=== PATIENT | female | born 1985 | race Caucasian/White ===

== ENCOUNTER 2021-08-25 16:50 | Inpatient (IN) | payer BC, OTHER ==
[2021-08-25 17:40] LABS: #Eosinphils 0.3 10x3/uL (0.0-0.5); #Neutrophils 8.1 10x3/uL (1.5-8.4); %Basophils 0.3 % (0.0-2.0); %Eosinophils 2.5 % (0.0-6.0); %Lymphocytes 14.5 % (18.0-47.0); %Monocytes 8.9 % (0.0-10.0); %Neutrophils 73.3 % (40.0-75.0); Hemoglobin 11.9 g/dL (12.0-15.5); Mean Corpuscular HGB CONC 32.5 g/dL (32.0-36.0); Mean Corpuscular Hemoglobin 29.8 pg (27.0-33.0); Mean Corpuscular Volume 91.7 fl (81.6-98.3); Mean Platelet Volume 9.9 fl (7.4-10.4); Platelet Count 251 10x3/uL (150-450); RBC Distribution Width 13.4 % (11.5-14.5); Red Blood Cell (RBC) Count 3.99 10x6/uL (3.90-5.03); White Blood Cell (WBC) Count 11.1 10x3/uL (3.5-10.5)
[2021-08-25 17:51] LABS: ALT (SGPT) 17 U/L (8-55); AST (SGOT) 28 U/L (5-34); Albumin 4.1 g/dL (3.5-5.0); Alkaline Phosphatase 72 U/L (40-110); Anion Gap 14 mmol/L (10-20); BUN (Urea Nitrogen) 9 mg/dL (7.0-18.7); Bilirubin, Total 0.4 mg/dL (0.2-1.2); Calc. Creatinine Clearance 0 mL/min (70-130); Calcium 8.9 mg/dL (7.8-10.44); Carbon Dioxide 24 mmol/L (22-29); Chloride 102 mmol/L (98-107); Glucose 94 mg/dL (70-105); Potassium 4.1 mmol/L (3.5-5.1); Protein, Total 7.1 g/dL (6.0-8.3); Sodium 136 mmol/L (136-145)
[2021-08-25 17:54] LABS: Bilirubin Neg (Negative); Blood, Urine 50 (Negative); Clarity Clear (Clear); Glucose, Urine (Dipstick) Normal (Negative); Ketone, Urine Negative (Negative); Leukocyte Negative (Negative); Nitrite Negative (Negative); Protein, Urine (Dipstick) Negative (Neg-Trace); Specific Gravity, Urine 1.015 (1.002-1.036); Urobilinogen Normal mg/dL (Less than 2)
[2021-08-25] MEDS ORDERED: Morphine 4 MG/ML VIAL ONE ×2 (18:02→20:51)
[2021-08-25 18:05] LABS: Pregnancy Test - Urine (BHCG) Negative (Negative); Pregu Control Background? CLEAR/WHITE (CLR/WHITE); Pregu Control Bar Appear? YES (CONTROL BAR); Specific Gravity 1.015 (1.002-1.036)
[2021-08-25 18:26] LABS: RBC/HPF 0-3 HPF (0-3)
[2021-08-25 18:27] LABS: Bacteria/HPF Rare-Few HPF (None Seen); Squamous Epithelial 0-3 HPF (0-3); WBC/HPF 0-3 HPF (0-3)
[2021-08-25 18:28] LABS: Mucous/LPF Rare LPF (<2+)
[2021-08-25] MEDS ORDERED: Ondansetron PF 4 MG/2 ML Vial ONE (20:51)
[2021-08-25] MEDS ORDERED: metroNIDAZOLE 500 MG/100 ML BAG ONE (22:52)
[2021-08-25] MEDS: Sodium Chloride 0.45% 1,000 ML IV SCH (23:00)
[2021-08-25] MEDS ORDERED: Acetaminophen 325 MG TAB PO PRN (23:09)
[2021-08-25] MEDS ORDERED: Acetaminophen 325 MG TAB ONE (23:12)
[2021-08-25] MEDS ORDERED: Cyclobenzaprine 10 MG TAB PO PRN (23:20)
[2021-08-25 23:37] LABS: Magnesium 2.1 mg/dL (1.6-2.6)
[2021-08-26] MEDS ORDERED: Cefepime 2 GM VIAL ONE (00:51)
[2021-08-26] MEDS: Cefepime 2 GM in Sodium Chloride 0.9% 100 ML IVPB SCH ×2 (00:55→13:14)
[2021-08-26 01:05] LABS: SARS-CoV-2 NAA Rapid Test Not Detected (NotDetected)
[2021-08-26] MEDS ORDERED: Ondansetron PF 4 MG/2 ML Vial ONE (02:26)
[2021-08-26] MEDS ORDERED: HYDROcodone/Acetaminophen 5/325 mg Tablet ONE (02:26)
[2021-08-26] MEDS: HYDROcodone/Acetaminophen 5/325 mg Tablet PO PRN ×3 (02:27→21:58)
[2021-08-26] MEDS: Ondansetron PF 4 MG/2 ML Vial IVP PRN ×4 (02:28→20:36)
[2021-08-26 03:36] LABS: #Eosinphils 0.2 10x3/uL (0.0-0.5); #Monocytes 1.1 10x3/uL (0.0-1.1); #Neutrophils 7.3 10x3/uL (1.5-8.4); %Basophils 0.3 % (0.0-2.0); %Eosinophils 1.5 % (0.0-6.0); %Lymphocytes 18.3 % (18.0-47.0); %Monocytes 10.2 % (0.0-10.0); %Neutrophils 69.2 % (40.0-75.0); Hemoglobin 10.8 g/dL (12.0-15.5); Mean Corpuscular HGB CONC 32.4 g/dL (32.0-36.0); Mean Corpuscular Volume 92.5 fl (81.6-98.3); Mean Platelet Volume 9.7 fl (7.4-10.4); Platelet Count 192 10x3/uL (150-450); RBC Distribution Width 13.3 % (11.5-14.5); White Blood Cell (WBC) Count 10.6 10x3/uL (3.5-10.5)
[2021-08-26 03:46] LABS: Anion Gap 11 mmol/L (10-20); BUN (Urea Nitrogen) 6 mg/dL (7.0-18.7); Calc. Creatinine Clearance 0 mL/min (70-130); Calcium 8.2 mg/dL (7.8-10.44); Carbon Dioxide 25 mmol/L (22-29); Chloride 105 mmol/L (98-107); Glucose 98 mg/dL (70-105); Potassium 3.6 mmol/L (3.5-5.1); Sodium 137 mmol/L (136-145)
[2021-08-26] MEDS ORDERED: Potassium Chloride 20 MEQ TAB PO SCH (06:00)
[2021-08-26] MEDS ORDERED: Potassium Chloride 20 MEQ TAB ONE (06:13)
[2021-08-26] MEDS ORDERED: metroNIDAZOLE 500 MG/100 ML BAG ONE (06:13)
[2021-08-26] MEDS: Levothyroxine Sodium 50 MCG TAB PO SCH (06:17)
[2021-08-26] MEDS: metroNIDAZOLE 500 MG in Premix Bag 1 BAG IVPB SCH ×3 (06:17→21:57)
[2021-08-26] MEDS: Morphine 4 MG/ML VIAL SLOW IVP PRN (08:16)
[2021-08-26 08:37] VITALS: BMI 32.0
[2021-08-26] MEDS: Magnesium Oxide 250 MG TAB PO SCH (11:10)
[2021-08-26] MEDS: Docusate 100 MG CAP PO SCH ×2 (11:11→20:36)
[2021-08-26] MEDS: Polyethylene Glycol 3350 17 GM Packet PO SCH (11:11)
[2021-08-26] MEDS: Venlafaxine HCl XR 75 MG CAP PO SCH (11:11)
[2021-08-26] MEDS: Enoxaparin Sodium 40 MG/0.4 ML SYRINGE SC SCH (11:11)
[2021-08-26] MEDS: Bupropion 150 MG XL TAB PO SCH (11:11)
[2021-08-26] MEDS: Sodium Chloride 0.45% 1,000 ML IV SCH (11:30)
[2021-08-26] MEDS: metFORMIN 850 MG TAB PO SCH (11:30)
[2021-08-26 14:11] LABS: Hemoglobin A1c 4.7 % (4.0-6.0)
[2021-08-27] MEDS: Cefepime 2 GM in Sodium Chloride 0.9% 100 ML IVPB SCH ×3 (00:04→23:23)
[2021-08-27] MEDS: metroNIDAZOLE 500 MG in Premix Bag 1 BAG IVPB SCH ×3 (06:29→21:06)
[2021-08-27] MEDS: Sodium Chloride 0.45% 1,000 ML IV SCH ×2 (06:31→16:54)
[2021-08-27] MEDS: Levothyroxine Sodium 50 MCG TAB PO SCH (06:36)
[2021-08-27 08:57] LABS: #Eosinphils 0.2 10x3/uL (0.0-0.5); #Monocytes 0.5 10x3/uL (0.0-1.1); #Neutrophils 3.6 10x3/uL (1.5-8.4); %Basophils 0.4 % (0.0-2.0); %Eosinophils 2.7 % (0.0-6.0); %Monocytes 8.8 % (0.0-10.0); %Neutrophils 62.7 % (40.0-75.0); Hemoglobin 9.9 g/dL (12.0-15.5); Mean Corpuscular HGB CONC 31.8 g/dL (32.0-36.0); Mean Corpuscular Hemoglobin 29.8 pg (27.0-33.0); Mean Corpuscular Volume 93.7 fl (81.6-98.3); Mean Platelet Volume 9.8 fl (7.4-10.4); Platelet Count 174 10x3/uL (150-450); Red Blood Cell (RBC) Count 3.32 10x6/uL (3.90-5.03); White Blood Cell (WBC) Count 5.7 10x3/uL (3.5-10.5)
[2021-08-27 09:05] LABS: Anion Gap 13 mmol/L (10-20); BUN (Urea Nitrogen) 6 mg/dL (7.0-18.7); Calc. Creatinine Clearance 148 mL/min (70-130); Calcium 8.3 mg/dL (7.8-10.44); Carbon Dioxide 25 mmol/L (22-29); Chloride 106 mmol/L (98-107); Glucose 85 mg/dL (70-105); Potassium 4.2 mmol/L (3.5-5.1); Sodium 140 mmol/L (136-145)
[2021-08-27] MEDS: Ondansetron PF 4 MG/2 ML Vial IVP PRN ×2 (09:28→23:24)
[2021-08-27] MEDS: Polyethylene Glycol 3350 17 GM Packet PO SCH (09:31)
[2021-08-27] MEDS: Venlafaxine HCl XR 75 MG CAP PO SCH (09:31)
[2021-08-27] MEDS: Magnesium Oxide 250 MG TAB PO SCH (09:31)
[2021-08-27] MEDS: Docusate 100 MG CAP PO SCH ×2 (09:31→21:36)
[2021-08-27] MEDS: Enoxaparin Sodium 40 MG/0.4 ML SYRINGE SC SCH (09:31)
[2021-08-27] MEDS: Bupropion 150 MG XL TAB PO SCH (09:31)
[2021-08-27] MEDS ORDERED: SUMAtriptan Succinate 25 MG TAB PO SCH (10:00)
[2021-08-27] MEDS: metFORMIN 850 MG TAB PO SCH (10:54)
[2021-08-27] MEDS: HYDROcodone/Acetaminophen 5/325 mg Tablet PO PRN ×2 (14:32→21:07)
[2021-08-27] MEDS: Morphine 4 MG/ML VIAL SLOW IVP PRN ×2 (17:29→23:23)
[2021-08-28] MEDS: Morphine 4 MG/ML VIAL SLOW IVP PRN ×3 (04:21→22:05)
[2021-08-28] MEDS: Sodium Chloride 0.45% 1,000 ML IV SCH ×2 (04:21→20:06)
[2021-08-28] MEDS: Levothyroxine Sodium 50 MCG TAB PO SCH (04:23)
[2021-08-28] MEDS: metroNIDAZOLE 500 MG in Premix Bag 1 BAG IVPB SCH ×3 (05:05→22:04)
[2021-08-28] MEDS: metFORMIN 850 MG TAB PO SCH (08:52)
[2021-08-28] MEDS: Venlafaxine HCl XR 75 MG CAP PO SCH (08:52)
[2021-08-28] MEDS: Bupropion 150 MG XL TAB PO SCH (08:52)
[2021-08-28] MEDS: Docusate 100 MG CAP PO SCH (08:52)
[2021-08-28] MEDS: Enoxaparin Sodium 40 MG/0.4 ML SYRINGE SC SCH (08:52)
[2021-08-28] MEDS: Polyethylene Glycol 3350 17 GM Packet PO SCH (08:52)
[2021-08-28] MEDS: Ondansetron PF 4 MG/2 ML Vial IVP PRN ×2 (08:52→18:32)
[2021-08-28] MEDS: Magnesium Oxide 250 MG TAB PO SCH (08:52)
[2021-08-28] MEDS: HYDROcodone/Acetaminophen 5/325 mg Tablet PO PRN ×2 (08:54→18:33)
[2021-08-28] MEDS ORDERED: Melatonin 3 MG TAB PO PRN (11:41)
[2021-08-28] MEDS: Cefepime 2 GM in Sodium Chloride 0.9% 100 ML IVPB SCH ×2 (13:36→23:36)
[2021-08-29] MEDS: Levothyroxine Sodium 50 MCG TAB PO SCH (05:11)
[2021-08-29] MEDS: metroNIDAZOLE 500 MG in Premix Bag 1 BAG IVPB SCH (05:11)
[2021-08-29] MEDS: Bupropion 150 MG XL TAB PO SCH (09:12)
[2021-08-29] MEDS: metFORMIN 850 MG TAB PO SCH (09:12)
[2021-08-29] MEDS: Venlafaxine HCl XR 75 MG CAP PO SCH (09:13)
[2021-08-29] MEDS: Enoxaparin Sodium 40 MG/0.4 ML SYRINGE SC SCH (09:13)
[2021-08-29] MEDS: Ondansetron PF 4 MG/2 ML Vial IVP PRN (09:18)
[2021-08-29] MEDS: HYDROcodone/Acetaminophen 5/325 mg Tablet PO PRN (09:18)
[2021-08-29] MEDS: Sodium Chloride 0.45% 1,000 ML IV SCH (09:36)
[2021-08-29 12:37] VITALS: BP 117/72; TEMP 97
[2021-08-29] MEDS: Cefepime 2 GM in Sodium Chloride 0.9% 100 ML IVPB SCH (13:05)
== END 2021-08-29 13:26 | disposition home or self-care (01) | DRG 392 ==
LOC: CSHERS 16:50 → CSHERHOLD 22:42 → OBSVTOIN 22:42 → CSHTELE 08-26 07:16
PROVIDERS: ADMIT Family Medicine; ATTEND Hospitalist
DX: K57.32 Diverticulitis of large intestine without perforation or abscess without bleeding (principal); E28.2 Polycystic ovarian syndrome; E11.9 Type 2 diabetes mellitus without complications; J45.909 Unspecified asthma, uncomplicated; G43.909 Migraine, unspecified, not intractable, without status migrainosus; G47.00 Insomnia, unspecified; E03.9 Hypothyroidism, unspecified; E06.3 Autoimmune thyroiditis; Z20.822 Contact with and (suspected) exposure to COVID-19; Z90.49 Acquired absence of other specified parts of digestive tract; Z72.89 Other problems related to lifestyle; Z79.899 Other long term (current) drug therapy; Z79.890 Hormone replacement therapy; Z98.890 Other specified postprocedural states; Z79.84 Long term (current) use of oral hypoglycemic drugs; Z79.2 Long term (current) use of antibiotics
CPT/HCPCS: 36415; 74177; 76856; 80048; 80053; 81003; 81015; 81025; 83036; 83605; 83735; 85025; 87040; 90471; 90732; G0009; J0692; J1650; J1956; J2270; J2405; J3490; U0002